=== PATIENT | female | born 1980 | race Caucasian/White ===

== ENCOUNTER → 2021-11-25 09:58 | Outpatient (BNVA) | payer OTHER, SELFPAY | PROVIDERS: PCP Registered Nurse; Visit Provider Registered Nurse | DX: Z02.1 Encounter for pre-employment examination (principal) | CPT/HCPCS: 80307 ==

== ENCOUNTER → 2022-02-06 14:58 | Outpatient (BNVA) | payer SELFPAY | PROVIDERS: PCP Registered Nurse; Visit Provider Registered Nurse | DX: E03.9 Hypothyroidism, unspecified (principal); E53.8 Deficiency of other specified B group vitamins; E04.1 Nontoxic single thyroid nodule | CPT/HCPCS: 80053; 82607; 84443; 85025; 86140 ==

== ENCOUNTER → 2022-07-08 08:47 | Outpatient (BNVA) | payer MEDICAID, SELFPAY | PROVIDERS: PCP Registered Nurse; Visit Provider Registered Nurse | DX: E03.9 Hypothyroidism, unspecified (principal); R13.10 Dysphagia, unspecified; L98.9 Disorder of the skin and subcutaneous tissue, unspecified | CPT/HCPCS: 84439; 84443; 84481; 85025 ==

== ENCOUNTER 2022-07-29 13:04 | Outpatient (CLI) | payer MEDICAID, SELFPAY ==
--- NOTE | 2022-07-29 13:45 | US_ITS ---
WS: [email or web address] THYROID ULTRASOUND HISTORY: E03.9 - Hypothyroidism, unspecified COMPARISON: None available. Right lobe: 1.5 cm x 1.9 cm x 5.8 cm (w x ap x l). Volume: 8.4 cm3. Normal size thyroid. There is a very hypoechoic well-circumscribed mass within the mid RIGHT gland me asuring 1.6 x 0.8 x 1.7 cm. Marked increased vascularity. No echogenic foci. No cervical chain adenop athy. Left lobe: 1.5 cm x 1.4 cm x 5.0 cm (w x ap x l). Volume: 5.2 cm3. Normal size and echotexture. No significant or dominant nodules are present. Isthmus: 0.2 cm. US/US thyroid [id number] IMPRESSION: 1. TI-RADS 4; recommend ultrasound-guided FNA RIGHT thyroid nodule. 2. Negative LEFT thyroid lobe.
== END 2022-07-29 13:05 | disposition home or self-care (01) ==
LOC: RAD 13:05
PROVIDERS: PCP Registered Nurse; Visit Provider Registered Nurse
DX: E03.9 Hypothyroidism, unspecified (principal); R13.10 Dysphagia, unspecified
CPT/HCPCS: 76536

== ENCOUNTER 2022-08-27 08:03 | Outpatient (CLI) | payer MEDICAID, SELFPAY ==
--- NOTE | 2022-08-27 08:45 | US_ITS ---
WS: [email or web address] ULTRASOUND THYROID FNA CLINICAL INFORMATION: E07.9 - Disorder of thyroid, unspecified TECHNIQUE: Ultrasound-guided FNA FINDINGS: The procedure including risks, benefits, and complications were discussed with the patient who agreed to proceed. Timeout was performed. Using sterile technique patient was prepped and draped in usual sterile fashion. After 1% lidocaine, using ultrasound guidance, a 25-gauge needle was advanc ed into the RIGHT thyroid nodule. 4 passes were made with active aspiration. Pathology was present fo r slide preparation. No immediate complications. Patient remained in the ultrasound suite 15 minutes postprocedure with intermittent ultrasound to ens ure no hematoma. No significant hematoma 15minutes postprocedure. US/US biopsy/FNA thyroid [id number] IMPRESSION: 1. Uncomplicated ultrasound-guided thyroid FNA 2. Cytology is pending.
== END 2022-08-27 08:04 | disposition home or self-care (01) ==
LOC: RAD 08:04
PROVIDERS: PCP Registered Nurse; Visit Provider Registered Nurse
DX: E07.9 Disorder of thyroid, unspecified (principal)
CPT/HCPCS: 10005; 88108

== ENCOUNTER 2022-09-04 07:20 | Outpatient (CLI) | payer MEDICAID, SELFPAY ==
--- NOTE | 2022-09-04 08:00 | US_ITS ---
WS: [email or web address] ULTRASOUND THYROID FNA CLINICAL INFORMATION: E07.9 - Disorder of thyroid, unspecified TECHNIQUE: Ultrasound-guided FNA FINDINGS: The procedure including risks, benefits, and complications were discussed with the patient who agreed to proceed. Timeout was performed. Using sterile technique patient was prepped and draped in usual sterile fashion. After 1% lidocaine, using ultrasound guidance, a 25-gauge needle was advanc ed into the RIGHT thyroid nodule. 5 passes were made with active aspiration. Pathology was present fo r slide preparation. No immediate complications. Patient remained in the ultrasound suite 10 minutes postprocedure with intermittent ultrasound to ens ure no hematoma. No hematoma 10 minutes postprocedure. US/US biopsy/FNA thyroid [id number] IMPRESSION: 1. Uncomplicated ultrasound-guided thyroid FNA 2. Cytology is pending.
== END 2022-09-04 07:21 | disposition home or self-care (01) ==
PROVIDERS: PCP Registered Nurse; Visit Provider Registered Nurse
DX: E07.9 Disorder of thyroid, unspecified (principal)
CPT/HCPCS: 10005; 88108

== ENCOUNTER → 2022-11-10 09:14 | Outpatient (BNVA) | payer MEDICAID, SELFPAY | PROVIDERS: PCP Registered Nurse; Visit Provider Registered Nurse | DX: R69 Illness, unspecified (principal); Z20.822 Contact with and (suspected) exposure to COVID-19 | CPT/HCPCS: 87400; 87426 ==

== ENCOUNTER 2022-11-11 09:52 | Outpatient (CLI) | payer MEDICAID, SELFPAY ==
--- NOTE | 2022-11-11 09:59 | CT_ITS ---
WS: [id number] CT NECK TECHNIQUE: Contrast-enhanced CT of the neck with coronal and sagittal reformatted images. CLINICAL INFORMATION: NONTOXIC SINGLE THYROID NODULE DLP: 222.[address] scans at [facility] use at least one of these dose optimization techniques: automated e xposure control; mA and/or kV adjustment per patient size (includes targeted exams where dose is matc hed to clinical indication); or iterative reconstruction. FINDINGS: Comparison ultrasound thyroid July 29, 2022 Mastoid air cells are well aerated. Paranasal sinuses are well aerated. Small retention cyst in the R IGHT maxillary sinus. Lung apices are well aerated. Mild enlargement of the RIGHT thyroid gland. Enha ncing RIGHT thyroid nodule measuring 1.3 x 0.7 cm. Normal LEFT thyroid gland. Normal posterior nasopharynx. Normal parapharyngeal fat. Submandibular glands are normal. Normal paro tid glands. Prominent bilateral jugulodigastric lymph nodes. Numerous cervical lymph nodes not pathol ogically enlarged. Tongue base appears normal. Normal palatine tonsils. Slightly low-lying cerebellar tonsils. CT/CT neck w con* [id number] IMPRESSION: 1. RIGHT thyroid lobe enlargement with enhancing nodule measuring 1.3 x 0.7 cm . LEFT thyroid lobe is normal. 2. Parotid glands are normal. Submandibular glands are normal. 3. No evidence of supraglottic or glottic mass. Normal parapharyngeal fat. 4. Mastoid air cells are well aerated. 5. Paranasal sinuses are well aerated. Small retention cyst RIGHT maxillary si nus. 6. Prominent bilateral jugulodigastric lymph nodes. Otherwise no cervical lymp hadenopathy. Numerous normal sized cervical lymph nodes. 7. Incidental low-lying cerebellar tonsils.
[2022-11-11] MEDS: iohexol 350 mg/mL 500 mL Btl (per mL) IV (10:25)
== END 2022-11-11 09:53 | disposition home or self-care (01) ==
LOC: RAD 09:54
PROVIDERS: PCP Registered Nurse; Visit Provider Specialist
DX: E04.1 Nontoxic single thyroid nodule (principal); J34.1 Cyst and mucocele of nose and nasal sinus
CPT/HCPCS: 70491; Q9967

== ENCOUNTER → 2023-01-20 09:57 | Outpatient (BNVA) | payer MEDICAID, SELFPAY | PROVIDERS: PCP Registered Nurse; Visit Provider Registered Nurse | DX: E03.9 Hypothyroidism, unspecified (principal) | CPT/HCPCS: 84443 ==

== ENCOUNTER → 2023-01-27 09:29 | Outpatient (BNVA) | payer MEDICAID, SELFPAY | PROVIDERS: PCP Registered Nurse; Referring Provider Registered Nurse; Visit Provider Nurse Practitioner Family | DX: M77.01 Medial epicondylitis, right elbow (principal); G56.21 Lesion of ulnar nerve, right upper limb | CPT/HCPCS: 73080 ==

== ENCOUNTER 2023-07-01 13:56 | Outpatient (CLI) | payer MEDICAID, SELFPAY ==
[2023-07-01 14:38] LABS: Basophils # 0.1 10^3/uL (0.0-0.1); Basophils % 0.6 %; Eosinophils # 0.3 10^3/uL (0.0-0.8); Eosinophils % 2.3 %; Lymphocytes # 3.4 10^3/uL (0.8-4.8); Lymphocytes % 29.2 %; Mean Corpuscular HGB Conc 32.6 g/dL (30-55); Mean Corpuscular Hemoglobin 30.8 pg (27-33); Mean Corpuscular Volume 94.4 fl (85-98); Mean Platelet Volume 9.6 fL (7.4-10.4); Monocytes # 0.7 10^3/uL (0.2-0.9); Monocytes % 6.3 %; Neutrophils # 7.05 10^3/uL (1.8-7.7); Neutrophils % 61.3 %; Nucleated Red Blood Cells % 0 %; Platelet Count 366 10^3/cmm (157-399); Red Cell Distribution Width 12.9 % (12.1-15.1); White Blood Count 11.49 10^3/uL (3.29-11.43)
[2023-07-01 15:10] LABS: Free T4 Free Thyroxine 1.31 ng/dL (0.82-1.77); T3 Free 2.3 PG/ML (2.0-4.4); Thyroid Stimulating Hormone 5.12 uIU/mL (0.27-4.20)
== END 2023-07-01 13:57 | disposition home or self-care (01) ==
PROVIDERS: PCP Registered Nurse; Visit Provider Registered Nurse
DX: E03.9 Hypothyroidism, unspecified (principal)
CPT/HCPCS: 84439; 84443; 84481; 85025

== ENCOUNTER 2023-07-15 08:43 | Outpatient (CLI) | payer SELFPAY ==
[2023-07-15 09:08] LABS: Basophils # 0.1 10^3/uL (0.0-0.1); Eosinophils # 0.2 10^3/uL (0.0-0.8); Hematocrit 36.8 % (36-47); Lymphocytes # 2.7 10^3/uL (0.8-4.8); Lymphocytes % 30.8 %; Mean Corpuscular HGB Conc 33.4 g/dL (30-55); Mean Corpuscular Hemoglobin 31.7 pg (27-33); Mean Corpuscular Volume 94.8 fl (85-98); Mean Platelet Volume 9.5 fL (7.4-10.4); Monocytes # 0.6 10^3/uL (0.2-0.9); Monocytes % 7.3 %; Neutrophils # 5.09 10^3/uL (1.8-7.7); Neutrophils % 58.7 %; Nucleated Red Blood Cells % 0 %; Platelet Count 443 10^3/cmm (157-399); Red Blood Count 3.88 10^6/uL (3.85-5.65); Red Cell Distribution Width 12.7 % (12.1-15.1); White Blood Count 8.67 10^3/uL (3.29-11.43)
[2023-07-15 09:29] LABS: Alanine Aminotransferase 12 U/L (0-33); Albumin Level 4.5 g/dL (3.5-5.2); Alkaline Phosphatase 66 U/L (35-105); Aspartate Amino Transferase 12 U/L (0-32); Blood Urea Nitrogen 11 mg/dL (6-20); Calcium 8.6 mg/dL (8.5-10.5); Carbon Dioxide 26 mmol/L (22-29); Chloride 107 mmol/L (98-107); Globulin 2.2 g/dL (1.3-4.6); Glomerular Filtration Rate 60.5 mL/min (90-130); Glucose 91 mg/dL (65-115); Osmolality Calculated 289 mOsm/kg (285-295); Sodium 140 mmol/L (136-145); Total Bilirubin 0.5 mg/dL (0.15-1.2); Total Protein 6.7 g/dL (6.6-8.7)
== END 2023-07-15 08:44 | disposition home or self-care (01) ==
PROVIDERS: PCP Registered Nurse; Visit Provider Registered Nurse
DX: I10 Essential (primary) hypertension (principal)
CPT/HCPCS: 36415; 80053; 85025

== ENCOUNTER → 2023-07-23 15:48 | Outpatient (BNVA) | payer SELFPAY | PROVIDERS: PCP Registered Nurse; Visit Provider Registered Nurse | DX: R31.9 Hematuria, unspecified (principal) | CPT/HCPCS: 81000 ==

== ENCOUNTER 2023-07-30 09:51 | Outpatient (CLI) | payer OTHER, SELFPAY ==
--- NOTE | 2023-07-30 10:00 | USCV_ITS ---
Gisella Mosley Age: 42 Gender: F : 1980 Exam Date: 07/30/2023 10:09 Ordering Phys: Desiree MontesP Technologist: ALEX Exam Location: [facility] [place]_ Indication: HTN Aortic Velocity @ SMA (cm/s) 104 RIGHT KIDNEY LEFT KIDNEY Velocity (cm/s) Velocity (cm/s) Sys/Bedolla Sys/Bedolla Resistive Index Resistive Index 69.4 / 19.8 0.71 Proximal Renal Artery 66.7 / 24.0 0.64 48.8 / 18.1 0.63 Mid Renal Artery 93.5 / 30.1 0.68 51.7 / 18.3 0.65 Distal Renal Artery 55.9 / 18.3 0.67 105.8 / 34.7 0.67 Hilar 109.6 / 46.2 0.58 111.6 / 27.3 0.76 Upper Pole 75.4 / 30.6 0.59 168.7 / 68.8 0.59 Mid Pole 136.6 / 53.4 0.61 135.1 / 45.5 0.66 Lower Pole 168.0 / 53.3 0.68 0.70 Renal Aortic Ratio 0.90 Accleration Index (cm/sec2) 719.00 Hilar 956.00 1035.0 Upper Pole 743.00 0 1716.0 Mid Pole 1294.0 0 0 948.00 Lower Pole 1600.0 0 102.1 Kidney Length (mm) 112.9 FINDINGS No comparison. No evidence of abdominal aortic aneurysm. There is no evidence of hemodynamically significant right renal artery stenosis. There is no evidence of hemodynamically significant left renal artery stenosis. CONCLUSIONS No sonographic evidence of renal aortic stenosis or aneurysm. Dr. Judy Blackmon DO (Electronically Signed) Final Date: 30 July 2023 10:55 S
== END 2023-07-30 09:52 | disposition home or self-care (01) ==
PROVIDERS: PCP Registered Nurse; Visit Provider Registered Nurse
DX: I10 Essential (primary) hypertension (principal)
CPT/HCPCS: 93975

== ENCOUNTER 2023-08-03 10:16 | Outpatient (CLI) | payer OTHER, SELFPAY ==
--- NOTE | 2023-08-03 10:28 | XR_ITS ---
WS: [email or web address] EXAMINATION: XR KUB [id number] REASON FOR EXAM: R10.9 - Unspecified abdominal pain COMPARISON: None available. ORDER DATE: 08/03/2023 10:29 AM FINDINGS: There is a nonspecific colonic gas pattern with scattered fecal content and gas. There is no sign of significant small bowel dilation. No pathologic abdominal calcification is seen. The clips from prior cholecystectomy are noted. IMPRESSION: No acute change
== END 2023-08-03 10:17 | disposition home or self-care (01) ==
PROVIDERS: PCP Registered Nurse; Visit Provider Registered Nurse
DX: R10.9 Unspecified abdominal pain (principal)
CPT/HCPCS: 74018

== ENCOUNTER → 2023-10-06 15:31 | Outpatient (BNVA) | payer OTHER, SELFPAY | PROVIDERS: PCP Registered Nurse; Visit Provider Podiatrist Foot & Ankle Surgery | DX: M21.621 Bunionette of right foot; M20.41 Other hammer toe(s) (acquired), right foot; M76.71 Peroneal tendinitis, right leg | CPT/HCPCS: 73630 ==

== ENCOUNTER → 2023-10-29 13:25 | Outpatient (BNVA) | payer OTHER, SELFPAY | PROVIDERS: PCP Registered Nurse; Visit Provider Registered Nurse | DX: Z11.52 Encounter for screening for COVID-19 (principal); R68.89 Other general symptoms and signs; J06.9 Acute upper respiratory infection, unspecified | CPT/HCPCS: 87400; 87426 ==

== ENCOUNTER → 2023-12-28 08:09 | Outpatient (BNVA) | payer OTHER, SELFPAY | PROVIDERS: PCP Registered Nurse; Visit Provider Registered Nurse | DX: E89.0 Postprocedural hypothyroidism (principal); I10 Essential (primary) hypertension; Z01.419 Encounter for gynecological examination (general) (routine) without abnormal findings | CPT/HCPCS: 80053; 82378; 83516; 84432; 84439; 86800; 87070; 87205; 87624 ==

== ENCOUNTER 2024-01-01 13:57 | Outpatient (CLI) | payer OTHER, SELFPAY ==
--- NOTE | 2024-01-01 14:30 | MM_ITS ---
WS: [email or web address] BILATERAL 3D TOMOSYNTHESIS DIGITAL SCREENING MAMMOGRAPHY WITH CAD CLINICAL INFORMATION: Z12.39 - Encounter for other screening for malignant neop... HISTORY: Screening mammogram. No current complaints. COMPARISON: None. TECHNIQUE: Bilateral CC and MLO views. FINDINGS: Scattered fibroglandular densities bilaterally. No suspicious focal mass, asymmetry, calcifications, or architectural distortion. No evidence of malignancy. IMPRESSION: MM/[place] [id number] BI-RADS: 1-Negative FOLLOW UP: 1 Year Follow-up Recommend return to annual screening mammography.
== END 2024-01-01 13:58 | disposition home or self-care (01) ==
LOC: RAD 13:58
PROVIDERS: PCP Registered Nurse; Visit Provider Registered Nurse
DX: Z12.31 Encounter for screening mammogram for malignant neoplasm of breast (principal)
CPT/HCPCS: 77063; 77067; 80053; 82378; 83516; 84432; 84439; 86800; 87070; 87205; 87624

== ENCOUNTER 2024-02-23 11:53 | Outpatient (CLI) | payer OTHER, SELFPAY ==
[2024-02-23 14:03] LABS: Thyroid Stimulating Hormone 11.26 uIU/mL (0.27-4.20)
== END 2024-02-23 11:54 | disposition home or self-care (01) ==
LOC: LAB 11:55
PROVIDERS: PCP Registered Nurse; Visit Provider Registered Nurse
DX: E03.9 Hypothyroidism, unspecified (principal); N92.1 Excessive and frequent menstruation with irregular cycle
CPT/HCPCS: 36415; 84439; 84443

== ENCOUNTER 2024-02-25 09:49 | Outpatient (CLI) | payer OTHER, SELFPAY ==
--- NOTE | 2024-02-25 10:00 | US_ITS ---
WS: [email or web address] US pelv w/transvag [id number] HISTORY: N92.1 - Excessive and frequent menstruation with irregula... COMPARISON: None available. Uterus: 8.0 cm x 4.8 cm x 4.4 cm. Normal size retroverted uterus. No fibroid or mass identified. Endometrium: 0.8 cm. Normal size endometrium. There is a small amount of fluid along the endometrial canal which may be associated with the menses. Right ovary: 3.8 cm x 3.2 cm x 3.1 cm. Normal size and vascularity, no cystic or solid masses. Domina nt follicle measures 1.9 x 1.6 x 1.8 cm. No cyst or solid mass. Left ovary: 2.7 cm x 2.8 cm x 1.9 cm. Normal size and vascularity, no cystic or solid masses. Dominan t follicle measures 2.1 x 2.1 x 1.6 cm. No solid mass or cyst. No free fluid in the cul-de-sac. IMPRESSION: 1. Retroverted uterus. No fibroid. 2. Normal endometrium. There is a small amount of fluid along the endometrial canal which can be ass ociated with menstruation.
== END 2024-02-25 09:50 | disposition home or self-care (01) ==
LOC: RAD 09:50
PROVIDERS: PCP Registered Nurse; Visit Provider Registered Nurse
DX: N92.1 Excessive and frequent menstruation with irregular cycle (principal); Z86.018 Personal history of other benign neoplasm; N85.4 Malposition of uterus
CPT/HCPCS: 76830; 76856

== ENCOUNTER → 2024-04-12 07:56 | Outpatient (BNVA) | payer OTHER, SELFPAY | PROVIDERS: PCP Registered Nurse; Referring Provider Registered Nurse; Visit Provider Student in an Organized Health Care Education/Training Program | DX: M67.432 Ganglion, left wrist | CPT/HCPCS: 73110 ==

== ENCOUNTER 2024-05-09 10:54 | Day surgery (SDC) | payer OTHER, SELFPAY ==
[2024-05-09] VITALS (7 sets, daily range): BP systolic 112–155; BP diastolic 50–110; PULSE 80–104; RESP 16–20; TEMP 36.1–36.7; O2SAT 95–97; BMI 29.1
[2024-05-09 11:24] LABS: OR HCG Qualitative Urine Negative (Negative)
[2024-05-09] MEDS: acetaminophen 1,000 MG/100 ML PIGGYBACK 400 MG IV (11:31)
[2024-05-09] MEDS: ketorolac 30 mg/mL INJ IVP (11:33)
[2024-05-09] MEDS: scopolamine 1.5 Patch 1 PATCH TRANSDERMA (11:35)
[2024-05-09] MEDS: sodium chloride 0.9% 1,000 ML 30 ML IV (11:37)
--- NOTE | 2024-05-09 12:04 | W.PM.OPSUD ---
Surgery/Procedure H&P Update DATE OF PROCEDURE: May 09, 2024 DATE H&P PERFORMED: 04/12/24 H&P UPDATE INFORMATION: I have reviewed H&P completed within last 30 days, I have examined patient prior to procedure and No changes to prior documentation PREOP DIAGNOSIS: Left volar wrist ganglion cyst PRIMARY INDICATION FOR PROCEDURE: Left wrist volar ganglion cyst PLANNED PROCEDURE: Operation Date: 05/09/24 13:10 Proposed Procedures p left volar wrist ganglion cyst excision(Left) - Cullen Christopher DO
[2024-05-09] MEDS: clindamycin 600 MG/50 ML PREMIX 50 MG IV (12:06)
--- NOTE | 2024-05-09 12:24 | ANES.PREANE2 ---
Pre-Anesthetic Assessment Height/Weight: Height 1.7 m Weight 84.368 kg Temp Pulse Resp BP Pulse Ox O2 Del Method 98.1 F 104 H 18 155/110 96 Room Air 05/09/24 11:14 05/09/24 11:14 05/09/24 11:14 05/09/24 11:14 05/09/24 11:14 05/09/24 11:14 Preop Diagnosis: Left volar wrist ganglion cyst Operation Date: 05/09/24 13:10 Proposed Procedures p left volar wrist ganglion cyst excision(Left) - Cullen Christopher DO Familial anesthetic complications: none Was Beta Kaylen taken within 24 hours: N/A Was Clonidine taken within 24 hours: N/A Last intake: Intake Last Liquid Date 05/08/24 Last Liquid Time 21:30 Last Solid Date 05/08/24 Last Solid Time 19:00 Social Tobacco and No alcohol Exam alert, oriented x 3 and clear to auscultation bilaterally Airway Mallampati: Class II Dentition: full History/ROS No significant history except as noted Pulmonary None reported CV/HEM Hypertension None reported Hepatic None reported GI Gastroesophageal Reflux Disease Metabolic Thyroid Disease [facility] [place] None reported Neuropsych None reported Anesthetic Plan ASA status: 2 Anesthesia: Anesthesia Evaluation and MAC Risk of > 500 ml blood loss (7ml/kg in children): No Medications/Allergies Home Medications Medication Instructions Recorded Confirmed Last Taken Type albuterol sulfate 2.5 mg/3 mL 2.5 mg (3 mL) inhalation Q8H PRN 10/29/23 05/04/24 Unknown Rx (0.083 %) solution for nebulization bronchospasm 10 days #90 mL losartan 50 mg tablet 50 mg PO DAILY #90 tabs 02/08/24 05/09/24 05/08/24 Rx levothyroxine 150 mcg capsule 150 mcg PO DAILY 90 days #90 caps 02/24/24 05/09/24 05/09/24 Rx celecoxib 100 mg capsule 100 mg PO PRN 05/04/24 05/04/24 05/03/24 History famotidine 40 mg tablet 40 mg PO DAILY 05/04/24 05/09/24 05/08/24 History Allergies Allergy/AdvReac Type Severity Reaction Status Date / Time cephalexin [From Keflex] Allergy ALGY-Rash Verified 04/12/24 08:00 Current Medications Generic Name Dose Route Start Last Admin Trade Name Freq PRN Reason Stop Dose Admin Sodium Chloride 1,000 mls @ 30 mls/hr 05/09/24 11:00 05/09/24 11:37 Sodium Chloride 0.9% IV 05/10/24 10:59 30 mls/hr .Q24H PJ Administration PFSH Anesthesia Medical History Cigarette smoker one half pack a day or less Hypothyroidism Surgical History History of total thyroidectomy Family History Grandmother Cancer Mother Chronic kidney disease (CKD) Social History Smoking and tobacco/nicotine status: current every day tobacco/nicotine user Alcohol intake: current Alcohol intake frequency: few times a month Substance/Drug Use: never Adopted: No Caregiver/support person: No Lives independently: No Household members: spouse Marital status: service: No Current occupational status: retired Sexually active: Yes Do you think of yourself as: Lesbian/Bartholomew/Homosexual Current gender identity: Female Female Reproductive History Date of last menstrual period: 04/25/24 Data Anesthesia Cardiac Studies: No Data to Display
[2024-05-09] MEDS: ROPivacaine 0.5% SDV 30 mL 25 MG INJECTION (12:30)
[2024-05-09] MEDS: lidocaine-epi 1% 20 mL INJ 5 ML INJECTION (12:30)
--- NOTE | 2024-05-09 12:53 | W.PM.BPON ---
Date of Procedure: [05/09/2024] Surgeon: Cullen Christopher DO Pharmaceutical Engineer(s): None Procedure(s) performed: Left wrist volar ganglion cyst excision Findings of the procedure(s): Patient found to have left wrist volar ganglion cyst underwent excision without issues or complications volar splint applied will follow-up in the office in 2 weeks. Estimated blood loss: 2 mL Specimen(s) removed: Volar wrist ganglion cyst excised and sent for pathology Post-operative diagnosis: Left wrist volar ganglion cyst
--- NOTE | 2024-05-09 12:54 | P.OP_ITS ---
Operative Report Date of procedure: May 09, 2024 Surgeon: Cullen Christopher DO Procedure: Preoperative diagnosis: Left volar wrist ganglion cyst Postoperative diagnosis: Same Procedure Left volar wrist ganglion?cyst?excision Specimens removed/disposition: Left volar wrist ganglion?cyst?excised and sent for pathology Surgeon: Cullen Christopher DO Estimated blood loss: 2mL Tourniquet time 12 minutes IV fluids: See anesthesia record Complications: None Findings: See operative report narrative Condition: stable Disposition: same day Brief History: Patient's been worked up in the outpatient setting and findings consistent with preoperative diagnosis.? Patient has a Left volar wrist ganglion?cyst.? Patient has attempted conservative treatment and this has become significantly painful.?? We talked about treatment options as far as nonoperative and operative intervention.? At this point time patient like a more permanent solution in the lowest chance of recurrence and as result through shared de cision making we agreed to proceed with a Left volar wrist ganglion?cyst?excision.? Patient understands risk benefits complication alternatives surgical nonsurgical treatment options.? Understanding risk of surgery patient agrees to proceed.? All questions answered.? Consent obtained in the office. Procedure: Patient seen evaluate in the preoperative holding area.? Consent was signed and reviewed with patient.? All questions were answered at that time.? Correct extremity was then marked.? Once seen evaluated by anesthesia patient was then brought back to the operative suite.? Patient was then placed in supine position all bony prominences well-padded patient was properly secured to the bed.? An armboard was then applied for the Left upper extremity.? A nonsterile tourniquet was applied to the Left upper extremity arm.? Patient then underwent anesthesia per the anesthesia department.? Once appropriately anesthetized the Left upper extremity was then prepped and draped in standard orthopedic fashion.? Final timeout performed.? Patient received appropriate preoperative antibiotics. Under sterile aseptic technique I began with local anesthetic for my preplanned surgical site.? Then I utilized an Esmarch tourniquet to exsanguinate the Left upper extremity to 250 mmHg Patient had a large soft mobile ganglion?cyst?which a incision was then centered longitudinally directly over the?cyst?over the volar aspect of the Left wrist, this was made in standard Elo fashion. sharp scalpel incision was made through skin.? I then switched to dissection scissors and spread longitudinally to identify cutaneous nerve branches as well as identifying protecting radial artery. These were protected throughout the case.? I immediately encountered the ganglion?cyst. I then dissected circumferentially all the way to the base which was connected to the volar capsule.? This was then transected at the base with bipolar electrocautery.? I did have to excise some of the volar capsule that communicated with the?cyst?this had a broad connection and?cyst?stalk to the volar capsule. I utilized bipolar electrocautery to to seal off the volar capsule and prevent any further?cyst?recurrence.??Cyst?was then sent for pathology.? I then thoroughly irrigated the wound bed tourniquet was deflated.? Hemostasis was satisfactory with bipolar electrocautery.? I then closed the incision with stitch for skin.? Xeroform over the incisions 4 x 4's ABD soft roll and a?volar?splint was applied.? Patient was then awakened from anesthesia and taken back in stable condition. Disposition: Patient taken back in stable condition recovering well.? Patient will receive appropriate discharge instructions as well as pain medication postoperatively.? Patient placed in a?volar?splint.? We will follow-up with in the orthopedic office in 2 weeks.? Patient understands of any questions or concerns and contact the office.
--- NOTE | 2024-05-09 13:20 | ANE.PACU2 ---
Inpatient post-anesthesia follow up: Airway intact: Yes Vital signs: Temperature 97.8 F Pulse Rate 81 Respiratory Rate 17 Blood Pressure 152/81 Pulse Oximetry 97 Oxygen Delivery Me thod Room Air Oxygen Flow Rate Fraction of Inspir ed Oxygen Hydration adequate: Yes Nausea and vomiting: No Pain level: 1 Mental status: Baseline
== END 2024-05-09 14:10 | disposition home or self-care (01) ==
PROVIDERS: Anesthesiology; PCP Registered Nurse; Visit Provider Student in an Organized Health Care Education/Training Program
PROC: (CPT 25111; principal; 2024-05-09 13:00)
DX: M67.432 Ganglion, left wrist (principal); I10 Essential (primary) hypertension; K21.9 Gastro-esophageal reflux disease without esophagitis; E03.9 Hypothyroidism, unspecified; F17.210 Nicotine dependence, cigarettes, uncomplicated
CPT/HCPCS: 25111; 81025; 88304; J0131; J1885; J2250; J2704; J2795; J3010; J3490; J7030

== ENCOUNTER → 2024-05-17 09:09 | Outpatient (BNVA) | payer OTHER, SELFPAY | PROVIDERS: PCP Registered Nurse; Referring Provider Registered Nurse; Visit Provider Internal Medicine | DX: E04.1 Nontoxic single thyroid nodule (principal); E03.9 Hypothyroidism, unspecified | CPT/HCPCS: 36415; 84439; 84443 ==

== ENCOUNTER → 2024-07-18 08:27 | Outpatient (BNVA) | payer OTHER, SELFPAY | PROVIDERS: PCP Registered Nurse; Visit Provider Internal Medicine | DX: E04.1 Nontoxic single thyroid nodule (principal); E03.9 Hypothyroidism, unspecified | CPT/HCPCS: 36415; 82306; 84439; 84443 ==

== ENCOUNTER 2024-10-21 09:47 | Outpatient (CLI) | payer OTHER, SELFPAY ==
[2024-10-21 10:44] LABS: Free T4 Free Thyroxine 1.78 ng/dL (0.82-1.77); Thyroid Stimulating Hormone 0.19 uIU/mL (0.27-4.20)
== END 2024-10-21 09:48 | disposition home or self-care (01) ==
LOC: LAB 09:51
PROVIDERS: PCP Registered Nurse; Visit Provider Internal Medicine
DX: E04.1 Nontoxic single thyroid nodule (principal); E03.9 Hypothyroidism, unspecified
CPT/HCPCS: 36415; 84439; 84443

== ENCOUNTER → 2024-11-07 12:40 | Outpatient (BNVA) | payer OTHER, SELFPAY | PROVIDERS: PCP Registered Nurse; Visit Provider Internal Medicine | DX: E04.1 Nontoxic single thyroid nodule (principal); E03.9 Hypothyroidism, unspecified; E55.9 Vitamin D deficiency, unspecified | CPT/HCPCS: 36415; 82306; 84439 ==

== ENCOUNTER 2025-01-02 09:58 | Outpatient (CLI) | payer OTHER, SELFPAY ==
--- NOTE | 2025-01-02 10:00 | MM_ITS ---
WS: [email or web address] BILATERAL SCREENING DIGITAL TOMOSYNTHESIS MAMMOGRAM WITH CAD HISTORY: SCREENING COMPARISON: 01/01/2024 Bilateral CC and MLO views with tomosynthesis and synthetic mammography submitted. Computer aided detection analyzed. Breast composition: The breasts are heterogeneously dense, which may obscure small masses. No suspicious masses, microcalcifications or architectural distortion. MM/MM scr BI tomosynthesis [id number] IMPRESSION: BI-RADS: 2 - Benign FOLLOW UP: 1 Year Follow-up
== END 2025-01-02 09:59 | disposition home or self-care (01) ==
LOC: RAD 09:58
PROVIDERS: PCP Registered Nurse; Visit Provider Registered Nurse
DX: Z12.31 Encounter for screening mammogram for malignant neoplasm of breast (principal); R92.333 Mammographic heterogeneous density, bilateral breasts
CPT/HCPCS: 77063; 77067

== ENCOUNTER 2025-01-25 09:59 | Outpatient (CLI) | payer OTHER, SELFPAY ==
[2025-01-25 11:29] LABS: 25 Hydroxy Vitamin D 28 ng/mL (30-100); Thyroid Stimulating Hormone 1.17 uIU/mL (0.27-4.20)
[2025-01-25 11:55] LABS: Free T4 Free Thyroxine 1.52 ng/dL (0.82-1.77)
== END 2025-01-25 10:00 | disposition home or self-care (01) ==
PROVIDERS: PCP Registered Nurse; Visit Provider Internal Medicine
DX: E04.1 Nontoxic single thyroid nodule (principal); E03.9 Hypothyroidism, unspecified
CPT/HCPCS: 36415; 82306; 84439; 84443

== ENCOUNTER 2025-02-24 12:01 | Outpatient (CLI) | payer OTHER, SELFPAY ==
--- NOTE | 2025-02-24 12:15 | US_ITS ---
WS: [email or web address] THYROID ULTRASOUND HISTORY: see problem list, thyroidectomy. No history of cancer. COMPARISON: 09/04/2022 Complete thyroidectomy. There is no residual thyroid tissue within the thyroid beds. No adenopathy. No fluid collection. Normal submandibular glands. US/US thyroid [id number] IMPRESSION: Complete thyroidectomy. No residual recurrent thyroid tissue or adenopathy.
== END 2025-02-24 12:02 | disposition home or self-care (01) ==
LOC: RAD 12:03
PROVIDERS: PCP Registered Nurse; Visit Provider Internal Medicine
DX: E04.1 Nontoxic single thyroid nodule (principal); E03.9 Hypothyroidism, unspecified; E55.9 Vitamin D deficiency, unspecified; Z98.890 Other specified postprocedural states
CPT/HCPCS: 76536

== ENCOUNTER 2025-03-29 14:19 | Outpatient (CLI) | payer OTHER, SELFPAY ==
[2025-03-29 15:28] LABS: 25 Hydroxy Vitamin D 30 ng/mL (30-100); Thyroid Stimulating Hormone 8.36 uIU/mL (0.27-4.20)
[2025-03-29 20:08] LABS: Free T4 Free Thyroxine 1.23 ng/dL (0.82-1.77)
== END 2025-03-29 14:20 | disposition home or self-care (01) ==
PROVIDERS: PCP Registered Nurse; Visit Provider Internal Medicine
DX: E55.9 Vitamin D deficiency, unspecified (principal); E04.1 Nontoxic single thyroid nodule; E03.9 Hypothyroidism, unspecified
CPT/HCPCS: 36415; 82306; 84439; 84443

== ENCOUNTER 2025-04-05 08:50 | Day surgery (SDC) | payer OTHER, SELFPAY ==
[2025-04-05 09:04] VITALS: BP 134/96; PULSE 88; RESP 16; TEMP 36.4; O2SAT 98; BMI 30.8
[2025-04-05 09:08] LABS: OR HCG Qualitative Urine Negative (Negative)
[2025-04-05] MEDS: sodium chloride 0.9% 1,000 ML 15 ML IV (09:09)
--- NOTE | 2025-04-05 09:17 | W.PM.OPSUD ---
Surgery/Procedure H&P Update DATE OF PROCEDURE: April 05, 2025 DATE H&P PERFORMED: 03/21/25 H&P UPDATE INFORMATION: I have reviewed H&P completed within last 30 days, I have examined patient prior to procedure, No changes to prior documentation, Changes to prior documentation as noted here and Risks and benefits of the procedure reviewed PLANNED PROCEDURE: Operation Date: 04/05/25 10:35 Proposed Procedures p EGD 94066 [id number] G0121 K21.9 Z12.11(Not Applicable) - Ilia Quinn MD s Colonoscopy(Not Applicable) - Ilia Quinn MD
--- NOTE | 2025-04-05 09:22 | ANES.PREANE2 ---
Pre-Anesthetic Assessment Height/Weight: Height 1.7 m Weight 89.358 kg Temp Pulse Resp BP Pulse Ox O2 Del Method 97.6 F 88 16 134/96 98 Room Air 04/05/25 09:04 04/05/25 09:04 04/05/25 09:04 04/05/25 09:04 04/05/25 09:04 04/05/25 09:04 Preop Diagnosis: GERD, screening Operation Date: 04/05/25 10:35 Proposed Procedures p EGD 56520 21673 G0121 K21.9 Z12.11(Not Applicable) - Ilia Quinn MD s Colonoscopy(Not Applicable) - Ilia Quinn MD Familial anesthetic complications: none Was Beta Kaylen taken within 24 hours: N/A Was Clonidine taken within 24 hours: N/A Last intake: Intake Last Liquid Date 04/04/25 Last Liquid Time 21:00 Last Solid Date 04/03/25 Last Solid Time 18:00 Social Tobacco and No alcohol 1/2 pack(s) per day 30 pack years Exam alert and oriented x 3 Airway Submandibular: within normal limits Cervical ROM: within normal limits Mallampati: Class I Dentition: partials (upper) History/ROS No significant history except as noted Pulmonary Chronic Obstructive Pulmonary Disease and Sleep Apnea (not tested pt states she thinks she has it) CV/HEM Hypertension and Murmur None reported Hepatic None reported GI Gastroesophageal Reflux Disease Metabolic Thyroid Disease Musc/skel Lower Back Pain Neuropsych Anxiety Anesthetic Plan ASA status: 3 Anesthesia: MAC Risk of > 500 ml blood loss (7ml/kg in children): No Medications/Allergies Home Medications ?Medication ?Instructions ?Recorded ?Confirmed ?Last Taken ?Type albuterol sulfate 2.5 mg/3 mL 2.5 mg (3 mL) inhalation Q8H PRN 10/29/23 04/05/25 Unknown Rx (0.083 %) solution for nebulization bronchospasm 10 days #90 mL albuterol sulfate 90 mcg/actuation 1 inh inhalation QID #1 ea 11/08/24 04/05/25 04/03/25 Rx breath activated powder inhaler (ProAir RespiClick) losartan 50 mg tablet 50 mg PO DAILY #90 tabs 02/03/25 04/05/25 04/03/25 Rx pantoprazole 40 mg tablet,delayed 40 mg PO DAILY 30 days #30 tabs 02/24/25 04/05/25 04/03/25 Rx release alprazolam 0.5 mg tablet (Xanax) 0.25 - 0.5 mg PO DAILY PRN Anxiety 04/03/25 04/05/25 Unknown History celecoxib 100 mg capsule 100 mg PO BID PRN Pain 04/03/25 04/05/25 04/01/25 History levothyroxine 150 mcg tablet 150 mcg PO DAILY 04/03/25 04/05/25 04/05/25 History Allergies Allergy/AdvReac Type Severity Reaction Status Date / Time cephalexin (From [place]) Allergy ALGY-Rash Verified 04/03/25 10:02 Current Medications Generic Name Dose Route Start Last Admin Trade Name Freq PRN Reason Stop Dose Admin Sodium Chloride 1,000 mls @ 15 mls/hr 04/05/25 08:55 04/05/25 09:09 Sodium Chloride 0.9% IV 04/06/25 08:54 15 mls/hr .Q24H PRN Administration COLONOSCOPY FLUIDS PFSH Anesthesia Medical History Cigarette smoker one half pack a day or less Hypothyroidism Surgical History History of total thyroidectomy Family History Grandmother Cancer Mother Chronic kidney disease (CKD) Social History Smoking and tobacco/nicotine status: current every day tobacco/nicotine user Alcohol intake: current Alcohol intake frequency: few times a month Substance/Drug Use: never Adopted: No Caregiver/support person: No Lives independently: No Household members: spouse Marital status: service: No Current occupational status: retired Sexually active: Yes Do you think of yourself as: Lesbian/Bartholomew/Homosexual Current gender identity: Female
[2025-04-05 10:04] VITALS: BP 103/72; PULSE 74; RESP 18; TEMP 36.2; O2SAT 94
[2025-04-05 10:13] VITALS: BP 109/78; PULSE 83; RESP 18; TEMP 36.2; O2SAT 95
--- NOTE | 2025-04-05 10:40 | ANE.PACU2 ---
Inpatient post-anesthesia follow up: Airway intact: Yes Vital signs: Temperature 97.1 F Pulse Rate 83 Respiratory Rate 18 Blood Pressure 109/78 Pulse Oximetry 95 Oxygen Delivery Me thod Room Air Oxygen Flow Rate Fraction of Inspir ed Oxygen Hydration adequate: Yes Nausea and vomiting: No Pain level: 1 Mental status: Baseline
== END 2025-04-05 10:39 | disposition home or self-care (01) ==
PROVIDERS: Student in an Organized Health Care Education/Training Program; PCP Registered Nurse; Visit Provider Surgery
PROC: 0DJ08ZZ Inspection of Upper Intestinal Tract, Via Natural or Artificial Opening Endoscopic (ICD-10-PCS; principal; 2025-04-05 10:35)
PROC: 0DJD8ZZ Inspection of Lower Intestinal Tract, Via Natural or Artificial Opening Endoscopic (ICD-10-PCS; CPT 45378; 2025-04-05 10:35)
DX: Z12.11 Encounter for screening for malignant neoplasm of colon (principal); K31.A11 Gastric intestinal metaplasia without dysplasia, involving the antrum; K29.50 Unspecified chronic gastritis without bleeding; K21.9 Gastro-esophageal reflux disease without esophagitis; J44.9 Chronic obstructive pulmonary disease, unspecified; E89.0 Postprocedural hypothyroidism; I10 Essential (primary) hypertension; F17.210 Nicotine dependence, cigarettes, uncomplicated; Z79.899 Other long term (current) drug therapy; Z79.890 Hormone replacement therapy; Z88.1 Allergy status to other antibiotic agents; Z90.49 Acquired absence of other specified parts of digestive tract
CPT/HCPCS: 43239; 45380; 81025; 88305; 88342; J2704; J7030

== ENCOUNTER 2025-04-18 08:11 | Emergency (ER) | payer OTHER, SELFPAY ==
[2025-04-18 08:17] VITALS: BP 174/107; PULSE 97; RESP 16; TEMP 36.8; O2SAT 97; BMI 31.0
[2025-04-18 08:21] VITALS: BP 174/107; PULSE 97; RESP 16; O2SAT 97
--- NOTE | 2025-04-18 08:22 | XRR_ITS ---
PROCEDURE INFORMATION: Exam: XR Left Hand Exam date and time: 04/18/2025 8:23 AM Age: 44 years old Clinical indication: Injury or trauma; Other: Laceration; Work related; Hand; Left; Additional info: L thumb TECHNIQUE: Imaging protocol: Radiologic exam of the left hand. Views: 3 or more views. COMPARISON: CR XR wrist LT min 3V* [id number] 04/12/2024 8:04 AM FINDINGS: Bones/joints: No displaced fracture nor dislocation seen. Soft tissues: No metallic foreign body seen. XR/XR hand LT min 3V* [id number] IMPRESSION: No displaced fracture seen.
[2025-04-18] MEDS: lidocaine-epi 1% 20 mL INJ INJECTION (08:29)
--- NOTE | 2025-04-18 08:49 | W.ED.WOUNDLC ---
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 her left hand lateral aspect of the MP joint with full range of motion unsure of last tetanus Related Data Home Medications ?Medication ?Instructions ?Recorded ?Confirmed alprazolam 0.5 mg tablet (Xanax) 0.25 - 0.5 mg PO DAILY PRN Anxiety 04/03/25 04/05/25 levothyroxine 150 mcg tablet 150 mcg PO DAILY 04/03/25 04/05/25 Previous Rx's ?Medication ?Instructions ?Recorded albuterol sulfate 2.5 mg/3 mL 2.5 mg (3 mL) inhalation Q8H PRN 10/29/23 (0.083 %) solution for nebulization bronchospasm 10 days #90 mL albuterol sulfate 90 mcg/actuation 1 inh inhalation QID #1 ea 11/08/24 breath activated powder inhaler (ProAir RespiClick) losartan 50 mg tablet 50 mg PO DAILY #90 tabs 02/03/25 pantoprazole 40 mg tablet,delayed 40 mg PO DAILY 30 days #30 tabs 04/17/25 release amoxicillin 500 mg-potassium 1 tab PO TID 5 days #15 tabs 04/18/25 clavulanate 125 mg tablet (Augmentin) Allergies Allergy/AdvReac Type Severity Reaction Status Date / Time cephalexin (From Keflex) Allergy ALGY-Rash Verified 04/03/25 10:02 [facility] PFSH: Medical History Cigarette smoker one half pack a day or less Hypothyroidism Surgical History History of total thyroidectomy Family History Grandmother Cancer Mother Chronic kidney disease (CKD) Social History Smoking and tobacco/nicotine status: current every day tobacco/nicotine user Alcohol intake: current Alcohol intake frequency: few times a month Substance/Drug Use: never Adopted: No Caregiver/support person: No Lives independently: No Household members: spouse Marital status: service: No Current occupational status: retired Sexually active: Yes Do you think of yourself as: Lesbian/Bartholomew/Homosexual Current gender identity: Female Physical Exam Extremity: OTHER: 2 and half centimeter laceration laterally at the second MP joint on the left hand Procedures Laceration Laceration 1: Site: upper extremity and hand Side (If applicable): left Size (cm): 2.5 Description: linear Depth: simple, single layer Local Anesthetic: lidocaine 1% and with epi Amount of anesthesia used (mL): 3 Pre-repair: wound explored and irrigated extensively Skin layer closed with: other (Prolene) Size (cm): 4-0 Number of sutures: 1 Technique: running (Locking) Course Vital Signs: Vital signs: Vital Signs Temperature 98.3 F 04/18/25 08:17 Pulse Rate 75 04/18/25 09:07 Respiratory Rate 16 04/18/25 08:21 Blood Pressure 126/70 04/18/25 09:07 Pulse Oximetry 97 04/18/25 09:07 Oxygen Delivery Me thod Room Air 04/18/25 08:17 MDM - Wound/Laceration Medical Decision Making Wound care instructions given x-ray reviewed no bony involvement noted. No bone or joint noted irrigated the wound. Patient has good strength against flexion and extension. Sutures to be removed in 7 to 10 days but have just Lab Data Radiology Impressions Hand X-Ray 04/18/25 08:22 IMPRESSION: No displaced fracture seen. All radiology interpretation(s) finalized by discharge Discharge Plan Discharge Patient Disposition: Home Clinical Impression: Laceration Condition: Stable Prescriptions: New amoxicillin-pot clavulanate [Augmentin] 500-125 mg tablet 1 tab PO TID 5 Days Qty: 15 0RF No Action albuterol sulfate 2.5 mg /3 mL (0.083 %) solution for nebulization 2.5 mg inhalation Q8H PRN (Reason: bronchospasm) 10 Days Qty: 90 0RF ProAir RespiClick 90 mcg/actuation aerosol powdr breath activated 1 inh inhalation QID Qty: 1 0RF losartan 50 mg tablet 50 mg PO DAILY Qty: 90 0RF pantoprazole 40 mg tablet,delayed release (DR/EC) 40 mg PO DAILY 30 Days Qty: 30 0RF levothyroxine 150 mcg tablet 150 mcg PO DAILY Rx Instructions: TAKE ONE TABLET BY MOUTH DAILY for 90 DAYS alprazolam [Xanax] 0.5 mg tablet 0.25 - 0.5 mg PO DAILY PRN (Reason: Anxiety) Discharge Orders: Discharge ED (Routine); Ordered 04/18/25 Ordered By: Artemio Vaughn Referrals: Desiree Montes FNP [Primary Care Provider, Family Practice] Discharge Diet: Usual diet Discharge Activity: Increase activity as tolerated Patient Instructions: Laceration (ED), Opioid Safety, Pain Management Activity Restrictions/Additional Instructions: Thank you for choosing [facility] for your healthcare needs today. It is very important that you follow up as instructed or that you return to the Emergency Department should you have concerns or if your condition changes or worsens in any way. You are seen in the emergency room after sustaining a laceration on your left hand. This was closed with a running suture. Keep suture clean and dry cover when you are working. Apply topical antibiotic ointment to the wound once daily suture to be removed in 7 to 10 days. You are also given prophylactic antibiotics to take 1 pill 3 times a day for 5 days. If there is any sign infection follow-up with your primary care doctor Print Language: Greek Coding Level of Care Code ED Head Grinder for Mario Nunez
[2025-04-18] MEDS: tetanus-dipt-pertussis 0.5 mL SDV IM (08:57)
[2025-04-18] MEDS: neomycin-poly-bacitracin oint 0.9 gm Pkt 1 APPLIC TOPICAL (09:00)
[2025-04-18 09:07] VITALS: BP 126/70; PULSE 75; O2SAT 97
== END 2025-04-18 09:09 | disposition home or self-care (01) ==
PROVIDERS: Emergency Provider Family Medicine; PCP Registered Nurse
DX: S61.412A Laceration without foreign body of left hand, initial encounter (principal); Z72.0 Tobacco use; X58.XXXA Exposure to other specified factors, initial encounter
CPT/HCPCS: 12001; 73130; 90471; 90715; 99283; J9999

== ENCOUNTER 2025-05-11 07:45 | Outpatient (CLI) | payer OTHER, SELFPAY ==
--- NOTE | 2025-05-11 08:00 | USCV_ITS ---
Gisella Mosley Age: 44 Gender: F : 1980 Exam Date: 05/11/2025 07:53 Ordering Phys: Desiree MontesP WORK ORDER CLERK Technologist: CINTHIA [place]am [place] [facility] [place]ication: Murmur BP: 140 / 100 HR: 77 Rhythm: Sinus Technical Quality: Adequate MEASUREMENTS (Male / Female) Normal Values 2D ECHO LV Diastolic Diameter PLAX 4.4 cm 4.2 - 5.9 / 3.9 - 5.3 cm IVS Diastolic Thickness 1.2 cm 0.6 - 1.0 / 0.6 - 0.9 cm IVS Systolic Thickness 1.3 cm LVPW Diastolic Thickness 1.0 cm 0.6 - 1.0 / 0.6 - 0.9 cm LVPW Systolic Thickness 1.6 cm LVOT Diameter 2.0 cm LV Ejection Fraction 2D Teich 56.7 % LV Ejection Fraction MOD 4C 62.8 % LV Ejection Fraction MOD 2C 59.5 % LV Ejection Fraction 2C AL 61.1 % LA Diameter 3.5 cm RA Systolic Volume 4C AL 36.0 ml RA Systolic Volume 4C MOD 34.7 ml LA Sys Volume AL 42.3 cm cubed LA Sys Volume Index AL 20.3 cm cubed/m squared Aorta at Sinotubular Diameter 1.9 cm IVC Diameter 2.3 cm M-MODE LA Ao Ratio MM 1.3 AV Cusp Separation MM 1.6 cm DOPPLER AV Peak Velocity 145.0 cm/s LVOT Peak Velocity 120.0 cm/s AV Area Cont Eq vti 2.6 cm squared AV Area Cont Eq pk 2.5 cm squared MV Peak Velocity 91.0 cm/s MV Area PHT 3.7 cm squared Mitral E to A Ratio 1.0 TR Peak Velocity 124.0 cm/s TR Peak Gradient 6.2 mmHg TV Peak E Velocity 63.0 cm/s PV Peak Velocity 95.0 cm/s FINDINGS Left Ventricle Normal left ventricular size and systolic function, EF 61%.. No regional wall motion abnormalities. Right Ventricle The right ventricle is normal in size and function. Right Atrium The right atrium is normal in size. Left Atrium The left atrium is normal in size. Mitral Valve Trace mitral valve regurgitation. Aortic Valve No gross abnormalities noted Tricuspid Valve No gross abnormalities noted Pulmonic Valve No gross abnormalities no Pericardium Normal pericardium without effusion. Aorta Normal aortic annulus size. IVC Normal inferior vena cava. CONCLUSIONS Normal left ventricular size and systolic function, EF 61%.. No regional wall motion abnormalities. Trace mitral valve regurgitation. Normal cardiac chamber sizes There are no intracardiac masses. There is no pericardial effusion. No similar previous studies are available for comparison Dr Vicky Godinez MD FACC (Electronically Signed) Final Date: 12 May 2025 17:57 S
== END 2025-05-11 07:46 | disposition home or self-care (01) ==
LOC: RAD 07:46
PROVIDERS: PCP Registered Nurse; Visit Provider Registered Nurse
DX: R01.1 Cardiac murmur, unspecified (principal); R22.43 Localized swelling, mass and lump, lower limb, bilateral
CPT/HCPCS: 93306

== ENCOUNTER → 2025-05-16 14:18 | Outpatient (BNVA) | payer OTHER, SELFPAY | PROVIDERS: PCP Registered Nurse; Visit Provider Internal Medicine | DX: E04.1 Nontoxic single thyroid nodule (principal); E55.9 Vitamin D deficiency, unspecified; E03.9 Hypothyroidism, unspecified | CPT/HCPCS: 36415; 84439; 84443; 84480 ==

== ENCOUNTER 2025-06-29 13:23 | Outpatient (CLI) | payer OTHER, SELFPAY ==
[2025-06-29 14:20] LABS: Free T4 Free Thyroxine 1.18 ng/dL (0.82-1.77); Thyroid Stimulating Hormone 2.81 uIU/mL (0.27-4.20)
== END 2025-06-29 13:24 | disposition home or self-care (01) ==
LOC: LAB 13:24
PROVIDERS: PCP Registered Nurse; Visit Provider Internal Medicine
DX: E04.1 Nontoxic single thyroid nodule (principal); E55.9 Vitamin D deficiency, unspecified; R53.83 Other fatigue
CPT/HCPCS: 36415; 84439; 84443; 84480

== ENCOUNTER → 2025-07-24 13:38 | Outpatient (BNVA) | payer OTHER, SELFPAY | PROVIDERS: PCP Registered Nurse; Visit Provider Registered Nurse | DX: N39.0 Urinary tract infection, site not specified (principal) | CPT/HCPCS: 81000 ==

== ENCOUNTER 2025-08-30 08:22 | Outpatient (CLI) | payer OTHER, SELFPAY ==
[2025-08-30 09:20] LABS: Free T4 Free Thyroxine 1.53 ng/dL (0.82-1.77); Thyroid Stimulating Hormone 0.49 uIU/mL (0.27-4.20)
== END 2025-08-30 08:23 | disposition home or self-care (01) ==
PROVIDERS: PCP Registered Nurse; Visit Provider Internal Medicine
DX: E04.1 Nontoxic single thyroid nodule (principal); E55.9 Vitamin D deficiency, unspecified; R53.83 Other fatigue
CPT/HCPCS: 36415; 84439; 84443; 84480